=== PATIENT | female | born 1995 | race Caucasian/White ===

== ENCOUNTER 2018-12-07 18:07 | Emergency (ER) | payer OTHER ==
[~2018-12-07] VITALS: Ht 154.9 cm; Wt 79.4 kg
[2018-12-07 18:15] VITALS: BP 144/86
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
--- NOTE | 2018-12-07 18:57 | RAD ---
EXAM: Right ankle, 3 views. HISTORY: Twisting injury. COMPARISON: None. FINDINGS: 3 views of the right ankle are obtained. There is no fracture, dislocation or subluxation. The ankle mortise is intact. There is no osteochondral lesion. IMPRESSION: No acute osseous finding. Electronically signed by: Willow Morales MD (12/07/2018 6:54 PM) [facility]
[2018-12-07] MEDS ORDERED: DICL50TA4 PO (19:03)
== END 2018-12-07 19:22 | disposition home or self-care (01) ==
LOC: ER 18:07
DX: S93.421A Sprain of deltoid ligament of right ankle, initial encounter (principal); X50.9XXA Other and unspecified overexertion or strenuous movements or postures, initial encounter; Y93.89 Activity, other specified; Y92.89 Other specified places as the place of occurrence of the external cause; Y99.8 Other external cause status
CPT/HCPCS: 29515; 73610; 81025; 99284

== ENCOUNTER 2020-08-29 11:35 | Emergency (ER) | payer OTHER ==
[~2020-08-29] VITALS: Ht 154.9 cm; Wt 74.0 kg
[~2020-08-29 11:35] MED LIST: DICL50TA4 PO
[2020-08-29 11:48] VITALS: BP 129/90
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
== END 2020-08-29 12:32 | disposition home or self-care (01) ==
LOC: ER 11:35
DX: Z71.1 Person with feared health complaint in whom no diagnosis is made (principal); R55 Syncope and collapse; J45.909 Unspecified asthma, uncomplicated; Z88.0 Allergy status to penicillin; Z88.1 Allergy status to other antibiotic agents
CPT/HCPCS: 99281

== ENCOUNTER 2021-08-07 07:16 | Emergency (ER) | payer OTHER ==
[~2021-08-07] VITALS: Ht 154.9 cm; Wt 88.0 kg
--- NOTE | 2021-08-07 07:41 | PHYS DOC ---
Past History Past Medical History: Asthma Alcohol Use: Occasionally Drug Use: None General Adult EDM: Chief Complaint: RAPID HEART RATE HPI: HPI: 25-year-old female presents with tachycardia or jaw pain. Patient uses teeth whitening strips a couple of days ago and since that time has felt like she has swelling of the lower of her face. She had swelling and irritation of her gums. She has been taking Tylenol for the discomfort. The patient feels like it is getting worse so she came to the emergency room. She has no medical history. She does not take any medications. On arrival her heart rate was 140-150. The patient did not think she had a fever but she had 1 on arrival of 100.7. Patient denies shortness of breath, chest pain. She has been feeling mildly dizzy this morning. She has not eaten breakfast. Review of Systems: Review of Systems: Constitutional: Denies fever or chills Eyes: Denies change in visual acuity HENT: Denies nasal congestion or sore throat. Lower facial swelling and pain. Respiratory: Denies cough or shortness of breath Cardiovascular: Denies chest pain or edema GI: Denies abdominal pain, nausea, vomiting, bloody stools or diarrhea : Denies dysuria Musculoskeletal: Denies back pain or joint pain Integument: Denies rash Neurologic: Dizziness. Denies headache, focal weakness or sensory changes Endocrine: Denies polyuria or polydipsia Lymphatic: Denies swollen glands Psychiatric: Denies depression or anxiety Allergies: Allergies: Allergies Coded Allergies Type Severity Reaction Last Updated Verified Penicillins Allergy Unknown 08/07/21 Yes amoxicillin Allergy Unknown 08/07/21 Yes Physical Exam: PE: Constitutional: Well developed, well nourished, obese, no acute distress, non- toxic appearance. [] HENT: Normocephalic, atraumatic, bilateral external ears normal, mild general edema of both lower face and jawline. Airway normal. [] Eyes: PERRLA, EOMI, conjunctiva normal, no discharge. [] Neck: Normal range of motion, no tenderness, supple, no stridor. [] Cardiovascular: Heart rate 145, regular rhythm, no murmur [] Lungs & Thorax: Bilateral breath sounds clear to auscultation [] Abdomen: Bowel sounds normal, soft, no tenderness, no masses, no pulsatile masses. [] Skin: Warm, dry, no erythema, no rash. [] Back: No tenderness, no CVA tenderness. [] Extremities: No tenderness, no cyanosis, no clubbing, ROM intact, no edema. [] Neurologic: Alert and oriented X 3, normal motor function, normal sensory function, no focal deficits noted. [] Psychologic: Affect normal, judgement normal, mood normal. [] EKG: EKG: Sinus rhythm, rate 145, normal axis, no ST elevation or depression. [] Radiology/Procedures: Radiology/Procedures: [] Impressions: Exam Date: 08/07/2021 8:15 AM CTA CHEST Indication: Reason: Sudden unexplained tachycardia, OMNI 350, 100ml / Spl. Instructions: / History: . TECHNIQUE: CT angiogram of the chest was performed following the administration of nonionic intravenous contrast for evaluation of pulmonary embolus. 3D MIPs were created and reviewed on an independent workstation to assist in diagnosis and clinical management. One or more of the following dose reduction techniques were utilized: *Automated exposure control (AEC) *Adjustment of mA and/or kV according to patient size *Use of iterative reconstruction technique *CT scan done according to ALARA, or ALARA/IMAGE GENTLY FINDINGS: There is adequate opacification of the pulmonary arteries. No central intravascular filling defects are appreciated. There is no evidence for central pulmonary embolus. The aorta is normal in caliber without evidence for dissection. The heart is normal in size without pericardial effusion. The visualized thyroid gland is within normal limits. No lymphadenopathy is seen. The central airways are patent. There is no focal consolidation, pleural effusion or pneumothorax. Images of the upper abdomen demonstrate no focal abnormality. Osseous structures are intact. IMPRESSION: No evidence for central pulmonary embolus. Electronically signed by: Prabhjot Curry MD (08/07/2021 8:48 AM) [id number] DICTATED AND SIGNED BY: PRABHJOT CURRY MD DATE: 08/07/21 0842 CC: STEPHANIE RODRÍGUEZ DO; PCP,NO ~MTH0 0 Heart Score: C/O Chest Pain: No Risk Factors: Risk Factors: DM, Current or recent (<one month) smoker, HTN, HLP, family history of CAD, obesity. Risk Scores: Score 0 - 3: 2.5% MACE over next 6 weeks - Discharge Home Score 4 - 6: 20.3% MACE over next 6 weeks - Admit for Clinical Observation Score 7 - 10: 72.7% MACE over next 6 weeks - Early Invasive Strategies Course & Med Decision Making: Course & Med Decision Making Pertinent Labs and Imaging studies reviewed. (See chart for details) The patient has elevated white count and a very high heart rate. The patient's EKG is significant for sinus tachycardia. She has an elevated white count. The rest of her labs are unremarkable. Her heart rate has improved after fluids. Have given her a gram of Rocephin for broad coverage. Her urinalysis is negative for infection. Chest x-ray is negative for infection. I did a CT angiogram that was negative for pulmonary embolus. She is negative for COVID and influenza. The patient's belly is on the low face hard and generally swollen. I do not see a focal source of infection. Treated with clindamycin for 7 days. If her condition worsens in any way I told her to come back to the emergency room. She is stable for discharge at this time. [] [place] Disclaimer: Edgardo Disclaimer: This electronic medical record was generated, in whole or in part, using a voice recognition dictation system. Departure Departure: Impression: Primary Impression: Oral infection Disposition: HOME / SELF CARE / HOMELESS Condition: STABLE Referrals: PCP,NO (PCP) Patient Instructions: Dental Pain, [id number] Scripts Tramadol Hcl (TRAMADOL HCL) 50 Mg Tablet 50 MG PO PRN Q6HRS PRN for PAIN, #15 TAB Prov: STEPHANIE RODRÍGUEZ DO 08/07/21 Clindamycin Hcl (CLINDAMYCIN HCL) 300 Mg Capsule 1 CAP PO TID for oral infection for 7 Days, #21 CAP Prov: STEPHANIE RODRÍGUEZ DO 08/07/21 STEPHANIE RODRÍGUEZ DO Aug 07, 2021 07:41
[2021-08-07] MEDS ORDERED: IV NORMAL SALINE 1,000ML 1,000 ML IV ONE (07:45)
--- NOTE | 2021-08-07 07:55 | EKG ---
[address] [address] Test Date: 2021-08-07 Test Time: 07:32:30 Pat Name: CHUY ALVES Department: Room: Gender: F Scholarship Counselor: NEFTALI : 1995 Requested By: STEPHANIE RODRÍGUEZ Order Number: [id number] Reading MD: Adolfo Paniagua Measurements Intervals [place] Rate: 145 P: 22 [place]: 126 QRS: 85 QRSD: 82 T: -11 QT: 278 QTc: 434 Interpretive Statements SINUS TACHYCARDIA ST & T ABNORMALITY, CONSIDER INFERIOR ISCHEMIA OR LEFT VENTRICULAR STRAIN Electronically Signed On 08-07-2021 14:42:09 TUNA PURSE SEINER by Adolfo Paniagua
[2021-08-07 08:03] LABS: BASO # 0.1 x10^3/uL (0.0-0.2); BASO % 1 % (0-3); EOS % 0 % (0-3); HEMATOCRIT 43.6 % (36.0-47.0); HEMOGLOBIN 14.7 g/dL (12.0-15.5); LYMPH # 2.3 x10^3/uL (1.0-4.8); LYMPH % 13 % (24-48); MEAN CORPUSCULAR HEMOGLOBIN 29 pg (25-35); MEAN CORPUSCULAR HGB CONC 34 g/dL (31-37); MEAN CORPUSCULAR VOLUME 85 fL (79-100); MONO # 1.6 x10^3/uL (0.0-1.1); MONO % 9 % (0-9); NEUT # 13.2 x10^3uL (1.8-7.7); NEUT % 77 % (31-73); PLATELET COUNT 391 x10^3/uL (140-400); RED BLOOD COUNT 5.12 x10^6/uL (3.50-5.40); WHITE BLOOD COUNT 17.2 x10^3/uL (4.0-11.0)
--- NOTE | 2021-08-07 08:03 | RAD ---
EXAMINATION: XR CHEST 1V CLINICAL HISTORY: Tachycardia. EXAM DATE/TIME: 08/07/2021 7:36 AM COMPARISON: None FINDINGS: Lines, Tubes, and Devices: None. Cardiomediastinal Silhouette: Within normal limits. Lungs and Pleura: No evidence of focal airspace consolidation or pleural effusion. Pulmonary vasculat ure unremarkable. Bones and Soft Tissues: No acute osseous abnormality. IMPRESSION: No evidence of acute cardiopulmonary abnormality. Electronically signed by: Ba Kang DO (08/07/2021 8:00 AM) TRAM
[2021-08-07 08:08] LABS: CALCIUM 9.3 mg/dL (8.5-10.1); CREATININE 0.7 mg/dL (0.6-1.0); GFR 103.7; POTASSIUM 3.8 mmol/L (3.5-5.1)
[2021-08-07 08:13] LABS: INFLUENZA A PATIENT NEGATIVE (NEGATIVE); INFLUENZA B PATIENT NEGATIVE (NEGATIVE)
[2021-08-07 08:14] LABS: ALBUMIN 4.4 g/dL (3.4-5.0); ALBUMIN/GLOBULIN RATIO 1.1 (1.0-1.7); TOTAL BILIRUBIN 0.8 mg/dL (0.2-1.0); TOTAL PROTEIN 8.3 g/dL (6.4-8.2)
[2021-08-07] MEDS ORDERED: CONTRAST GIVEN. MC PRN (08:15)
[2021-08-07] MEDS ORDERED: IOHEXOL 350 MG/ML 100 ML VIAL. IV ONE (08:15)
[2021-08-07 08:28] LABS: BARBITURATES NEG (NEG); BENZODIAZEPINES NEG (NEG); CANNABINOIDS POS (NEG); COCAINE NEG (NEG); METHADONE NEG (NEG); OPIATES NEG (NEG); PHENCYCLIDINE NEG (NEG)
[2021-08-07 08:31] LABS: CLARITY,URINE CLOUDY; COLOR,URINE AMBER; GLUCOSE,URINE NEG (NEG)
[2021-08-07 08:32] LABS: BACTERIA,URINE FEW /HPF (0-FEW); BILIRUBIN,URINE MOD (NEG); HYALINE CASTS, URINE FEW /HPF; NITRITE,URINE NEG (NEG); SQUAMOUS EPITHELIAL CELL,UR MANY /LPF
[2021-08-07 08:34] LABS: AMPHETAMINE/METHAMPHETAMINE NEG (NEG)
[2021-08-07 08:44] LABS: % LYMPHS 12 % (24-48); % MONOS 7 % (0-10); % SEGS 81 % (35-66); PLT ESTIMATE ADEQUATE (ADEQUATE)
--- NOTE | 2021-08-07 08:50 | RAD ---
Exam Date: 08/07/2021 8:15 AM CTA CHEST Indication: Reason: Sudden unexplained tachycardia, OMNI 350, 100ml / Spl. Instructions: / History: . TECHNIQUE: CT angiogram of the chest was performed following the administration of nonionic intrave nous contrast for evaluation of pulmonary embolus. 3D MIPs were created and reviewed on an [employer] workstation to assist in diagnosis and clinical management. One or more of the following dose red uction techniques were utilized: *Automated exposure control (AEC) *Adjustment of mA and/or kV according to patient size *Use of iterative reconstruction technique *CT scan done according to ALARA, or ALARA/IMAGE GENTLY FINDINGS: There is adequate opacification of the pulmonary arteries. No central intravascular filling defects are appreciated. There is no evidence for central pulmonary embolus. The aorta is normal in caliber without evidence for dissection. The heart is normal in size without pericardial effusion. The visualized thyroid gland is within normal limits. No lymphadenopathy is seen. The central airways are patent. There is no focal consolidation, pleural effusion or pneumothorax. Images of the upper abdomen demonstrate no focal abnormality. Osseous structures are intact. IMPRESSION: No evidence for central pulmonary embolus. Electronically signed by: Gilles Curry MD (08/07/2021 8:48 AM) [id number]
[2021-08-07] MEDS ORDERED: ONDANSETRON PF 4 MG/2 ML VIAL. IVP ONE (09:15)
[2021-08-07] MEDS ORDERED: MORPHINE SULFATE 4 MG/ML DISP.SYRIN. IV ONE (09:15)
[2021-08-07] MEDS ORDERED: cefTRIAXone SODIUM 1 GM VIAL ONE (09:16)
[2021-08-07] MEDS ORDERED: IV NORMAL SALINE 50ML 50 ML ONE (09:16)
[2021-08-07] MEDS ORDERED: KETOROLAC 30 MG/ML VIAL. ONE (09:17)
[2021-08-07] MEDS ORDERED: KETOROLAC 30 MG/ML VIAL. IVP ONE (09:30)
[2021-08-07] MEDS ORDERED: CLIN-95 PO (10:32)
[2021-08-07] MEDS ORDERED: TRAM50TA PO (10:33)
[2021-08-07 10:39] VITALS: BP 122/42
== END 2021-08-07 10:40 | disposition home or self-care (01) ==
LOC: ER 07:16
DX: B37.0 Candidal stomatitis (principal); J45.909 Unspecified asthma, uncomplicated; Z20.822 Contact with and (suspected) exposure to COVID-19; Z88.0 Allergy status to penicillin; Z88.1 Allergy status to other antibiotic agents
CPT/HCPCS: 36415; 71045; 71275; 80053; 80307; 81001; 81025; 83605; 84484; 85007; 85025; 87040; 87428; 93005; 96360; 96365; 96375; 99285; J0696; J1885; J7030; Q9967; 96361